=== PATIENT | male | born 2000 | race Two or more races ===

== ENCOUNTER 2019-09-11 04:43 | Emergency (ER) | payer OTHER ==
[~2019-09-11] VITALS: Ht 170.2 cm; Wt 78.6 kg
[2019-09-11 05:22] LABS: Urine Bacteria MANY /hpf (None Seen); Urine Blood Negative /uL (Negative); Urine Specific Gravity 1.012 (1.001-1.035); Urine WBC <1 /hpf (0 - 3)
[2019-09-11 07:10] LABS: Basophils # (auto) 0.1 uL; Basophils % (auto) 0.6 % (0.0-2.0); Eosinophils # (auto) 0.2 uL; Eosinophils % (auto) 2.1 % (0.0-7.0); Hematocrit 44.6 % (41.0-53.0); Hemoglobin 14.8 g/dL (13.5-17.5); Lymphocytes # (auto) 2.1 uL; Lymphocytes % (auto) 22.1 % (10.0-50.0); Mean Corpuscular Hemoglobin 25.5 pg (28.0-32.0); Mean Corpuscular Hgb Conc. 33.3 g/dL (32.0-36.0); Mean Corpuscular Volume 76.7 fL (80.0-100.0); Monocytes # (auto) 0.8 uL; Monocytes % (auto) 8.7 % (0.0-12.0); Neutrophils # (auto) 6.4 uL; Neutrophils % (auto) 66.5 % (37.0-80.0); Platelet Count (auto) 298 10^3/uL (140-450); Red Blood Cells 5.81 10^6/uL (4.5-5.90); White Blood Cell 9.6 10^3/uL (4.4-10.8)
[2019-09-11 07:29] LABS: Albumin 4.2 g/dL (3.4-5.0); BUN/Creatinine Ratio 9.3; Calcium 8.5 mg/dL (8.5-10.1); Potassium 3.9 mmol/L (3.5-5.1)
[2019-09-11 07:32] VITALS: BP 118/66
[2019-09-11 07:33] LABS: Bilirubin, Total 0.3 mg/dL (0.2-1.0); Total Protein 7.9 g/dL (6.4-8.2)
== END 2019-09-11 08:41 | disposition home or self-care (01) ==
LOC: ER 04:43
DX: R10.11 Right upper quadrant pain (principal); M79.18 Myalgia, other site
CPT/HCPCS: 36415; 74176; 80053; 81001; 82150; 83690; 85025

== ENCOUNTER 2019-12-28 22:10 | Emergency (ER) | payer OTHER ==
[~2019-12-28] VITALS: Ht 167.6 cm; Wt 77.1 kg
[2019-12-28 22:20] VITALS: BP 115/62
[2019-12-29] MEDS ORDERED: ONDANSETRON ODT 4 MG TAB PO ONE (00:15)
[2019-12-29] MEDS ORDERED: SIMETHICONE 80 MG CHEWABLE TABLET PO ONE (00:15)
== END 2019-12-29 00:35 | disposition home or self-care (01) ==
LOC: ER 22:10
DX: K52.9 Noninfective gastroenteritis and colitis, unspecified (principal)
CPT/HCPCS: 99283; Q0162

== ENCOUNTER 2020-03-14 04:44 | Inpatient (IN) | payer OTHER ==
[~2020-03-14] VITALS: Ht 170.2 cm; Wt 118.0 kg
[2020-03-14] MEDS ORDERED: ONDANSETRON HCL 4 MG/2 ML VIAL IV ONE ×2 (05:30→07:00)
[2020-03-14 05:47] LABS: Basophils # (auto) 0 10 ^3/uL (0-0.2); Basophils % (auto) 0.4 % (0.0-2.0); Eosinophils # (auto) 0.4 10 ^3/uL (0-0.8); Eosinophils % (auto) 3.7 % (0.0-7.0); Hematocrit 46.8 % (41.0-53.0); Hemoglobin 15.4 g/dL (13.5-17.5); Lymphocytes # (auto) 2.8 10 ^3/uL (0.4-5.4); Lymphocytes % (auto) 26.5 % (10.0-50.0); Mean Corpuscular Hemoglobin 25.6 pg (28.0-32.0); Mean Corpuscular Volume 77.7 fL (80.0-100.0); Monocytes % (auto) 9.8 % (0.0-12.0); Neutrophils # (auto) 6.4 10 ^3/uL (1.6-8.6); Neutrophils % (auto) 59.6 % (37.0-80.0); Platelet Count (auto) 306 10^3/uL (140-450); Red Blood Cells 6.03 10^6/uL (4.5-5.90); Red Cell Distribution Width 14.4 % (11.8-14.3); White Blood Cell 10.7 10^3/uL (4.4-10.8)
[2020-03-14 05:51] LABS: Urine Bacteria NONE SEEN /hpf (None Seen); Urine Blood Negative /uL (Negative); Urine Specific Gravity 1.011 (1.001-1.035); Urine WBC <1 /hpf (0 - 3)
[2020-03-14 06:07] LABS: Albumin 4.5 g/dL (3.4-5.0); Calcium 8.8 mg/dL (8.5-10.1); INR 1.03 (0.9-1.15); Magnesium 2.2 mg/dL (1.6-2.6); Partial Thromboplastin Time 23.2 sec (23.64-32.05); Potassium 3.2 mmol/L (3.5-5.1)
[2020-03-14 06:15] LABS: BUN/Creatinine Ratio 9.2; Bilirubin, Total 0.8 mg/dL (0.2-1.0); Total Protein 8.2 g/dL (6.4-8.2)
[2020-03-14] MEDS ORDERED: PIPERACILLIN-TAZOB 3.375GM 100 ML IV ONE (07:00)
[2020-03-14] MEDS ORDERED: MORPHINE SULFATE 4 MG/ML SYR/VIAL IV ONE (07:00)
[2020-03-14 07:45] LABS: Lactic Acid w/Reflex 2.2 mmol/L (0.4-2.0)
[2020-03-14] MEDS ORDERED: ONDANSETRON HCL 4 MG/2 ML VIAL IV PRN ×2 (09:15→18:45)
[2020-03-14] MEDS ORDERED: MORPHINE SULF INJ 2 MG/ML SYRINGE 1ML IV PRN (09:15)
[2020-03-14] MEDS ORDERED: SOD CHL 0.9%/ KCL 20MEQ 1,000 ML IV SCH (09:15)
[2020-03-14] MEDS ORDERED: NITROGLYCERIN 0.4 MG SL TAB SL PRN (09:15)
[2020-03-14] MEDS: HYDROmorphone HCL 2 MG/ML VL IV PRN ×3 (10:40→22:34)
[2020-03-14] MEDS: PANTOPRAZOLE 40 MG/10 ML VIAL INJ IV SCH (10:40)
[2020-03-14] MEDS: LACTATED RINGER'S 1,000 ML IV SCH ×2 (12:00→20:27)
[2020-03-14] MEDS: levoFLOXacin 500MG 100 ML IV SCH (16:00)
[2020-03-14] MEDS: metroNIDAZOLE 500MG/100ML 100 ML IV SCH ×2 (16:00→22:33)
[2020-03-14 17:12] VITALS: BP 139/78
[2020-03-14 21:41] VITALS: BP 136/67
[2020-03-15] MEDS: LACTATED RINGER'S 1,000 ML IV SCH ×3 (04:15→18:42)
[2020-03-15] MEDS: HYDROmorphone HCL 2 MG/ML VL IV PRN ×5 (04:16→23:01)
[2020-03-15 04:36] VITALS: BP 151/76
[2020-03-15] MEDS: metroNIDAZOLE 500MG/100ML 100 ML IV SCH ×3 (05:36→21:30)
[2020-03-15 06:06] LABS: Basophils # (auto) 0.1 10 ^3/uL (0-0.2); Eosinophils # (auto) 0 10 ^3/uL (0-0.8); Eosinophils % (auto) 0.2 % (0.0-7.0); Mean Corpuscular Hgb Conc. 32.8 g/dL (32.0-36.0); Monocytes # (auto) 1.4 10 ^3/uL (0-1.3); Red Cell Distribution Width 14.3 % (11.8-14.3)
[2020-03-15 06:08] LABS: Basophils % (auto) 0.4 % (0.0-2.0); Hemoglobin 15.7 g/dL (13.5-17.5); Lymphocytes # (auto) 1.3 10 ^3/uL (0.4-5.4); Lymphocytes % (auto) 8.5 % (10.0-50.0); Mean Corpuscular Hemoglobin 25.4 pg (28.0-32.0); Mean Corpuscular Volume 77.7 fL (80.0-100.0); Neutrophils # (auto) 13.1 10 ^3/uL (1.6-8.6); Neutrophils % (auto) 81.9 % (37.0-80.0); Nucleated Red Blood Cells % 0.1 %; Platelet Count (auto) 259 10^3/uL (140-450); Red Blood Cells 6.18 10^6/uL (4.5-5.90); White Blood Cell 15.9 10^3/uL (4.4-10.8)
[2020-03-15 06:26] LABS: Potassium 4.3 mmol/L (3.5-5.1)
[2020-03-15 06:39] LABS: BUN/Creatinine Ratio 8.7; Bilirubin, Total 0.9 mg/dL (0.2-1.0); Calcium 8.5 mg/dL (8.5-10.1); Total Protein 7.4 g/dL (6.4-8.2)
[2020-03-15 09:00] VITALS: BP 136/69
[2020-03-15] MEDS: PANTOPRAZOLE 40 MG/10 ML VIAL INJ IV SCH (09:19)
[2020-03-15] MEDS: levoFLOXacin 500MG 100 ML IV SCH (09:20)
[2020-03-15 12:40] VITALS: BP 139/84
[2020-03-15] MEDS ORDERED: PHEN1LIQ39 PO (13:37)
[2020-03-15] MEDS ORDERED: ACET-1304 PO (13:37)
[2020-03-15 16:55] VITALS: BP_SYST 138; BP_SYST 147; BP_DIAS 74; BP_DIAS 91
[2020-03-15] MEDS: ACETAMINOPHEN 325 MG TAB PO PRN (18:18)
[2020-03-15 21:41] VITALS: BP 138/81
[2020-03-16] MEDS: LACTATED RINGER'S 1,000 ML IV SCH ×4 (04:06→21:57)
[2020-03-16] MEDS: HYDROmorphone HCL 2 MG/ML VL IV PRN ×5 (04:07→21:59)
[2020-03-16 04:43] VITALS: BP 141/67
[2020-03-16] MEDS: metroNIDAZOLE 500MG/100ML 100 ML IV SCH (05:37)
[2020-03-16 05:43] LABS: Eosinophils # (auto) 0 10 ^3/uL (0-0.8)
[2020-03-16 05:46] LABS: Basophils # (auto) 0 10 ^3/uL (0-0.2); Basophils % (auto) 0.1 % (0.0-2.0); Eosinophils % (auto) 0.1 % (0.0-7.0); Hematocrit 42.6 % (41.0-53.0); Lymphocytes # (auto) 1.3 10 ^3/uL (0.4-5.4); Lymphocytes % (auto) 7.5 % (10.0-50.0); Mean Corpuscular Hemoglobin 25.4 pg (28.0-32.0); Mean Corpuscular Hgb Conc. 32.8 g/dL (32.0-36.0); Mean Corpuscular Volume 77.3 fL (80.0-100.0); Monocytes # (auto) 1.6 10 ^3/uL (0-1.3); Neutrophils # (auto) 14.8 10 ^3/uL (1.6-8.6); Neutrophils % (auto) 83.3 % (37.0-80.0); Platelet Count (auto) 227 10^3/uL (140-450); Red Blood Cells 5.51 10^6/uL (4.5-5.90); Red Cell Distribution Width 14.1 % (11.8-14.3); White Blood Cell 17.8 10^3/uL (4.4-10.8)
[2020-03-16 06:12] LABS: Potassium 3.7 mmol/L (3.5-5.1)
[2020-03-16 06:19] LABS: Albumin 3.2 g/dL (3.4-5.0); BUN/Creatinine Ratio 11.3; Bilirubin, Total 0.8 mg/dL (0.2-1.0); Calcium 7.9 mg/dL (8.5-10.1); Total Protein 6.5 g/dL (6.4-8.2)
[2020-03-16] MEDS: PANTOPRAZOLE 40 MG/10 ML VIAL INJ IV SCH (08:28)
[2020-03-16] MEDS: levoFLOXacin 500MG 100 ML IV SCH (08:28)
[2020-03-16] MEDS: ACETAMINOPHEN 325 MG TAB PO PRN ×2 (08:29→21:49)
[2020-03-16 08:50] VITALS: BP 120/82
[2020-03-16] MEDS ORDERED: ENOXAPARIN SOD 40 MG/0.4 ML SYRINGE SC ONE (10:30)
[2020-03-16] MEDS ORDERED: MEROPENEM 1GM IVPB 100 ML IV ONE (10:30)
[2020-03-16] MEDS ORDERED: OMNIPAQUE ORAL SOLN 500ml 12mg/ml PO ONE (10:44)
[2020-03-16] MEDS: MEROPENEM 1GM IVPB 100 ML IV SCH ×3 (12:53→21:52)
[2020-03-16] MEDS ORDERED: IOHEXOL 300 MG/ML 100ML BOTTLE IJ ONE (12:54)
[2020-03-16 13:00] VITALS: BP 127/75
[2020-03-16] MEDS: LINEZOLID 600MG/300ML 300 ML IV SCH ×2 (13:37→21:49)
[2020-03-16 16:06] LABS: Urine Bacteria NONE SEEN /hpf (None Seen); Urine Blood Negative /uL (Negative); Urine WBC 1 /hpf (0 - 3)
[2020-03-16 17:00] VITALS: BP 119/90
[2020-03-16 22:00] VITALS: BP 130/70
[2020-03-17] MEDS: HYDROmorphone HCL 2 MG/ML VL IV PRN ×4 (04:27→20:51)
[2020-03-17] MEDS: LACTATED RINGER'S 1,000 ML IV SCH ×3 (04:28→20:51)
[2020-03-17 05:00] VITALS: BP 128/76
[2020-03-17] MEDS: MEROPENEM 1GM IVPB 100 ML IV SCH ×3 (06:05→22:22)
[2020-03-17 07:51] LABS: Basophils # (auto) 0.1 10 ^3/uL (0-0.2); Eosinophils # (auto) 0.1 10 ^3/uL (0-0.8); Mean Corpuscular Hemoglobin 25.6 pg (28.0-32.0); Monocytes # (auto) 1.3 10 ^3/uL (0-1.3); Nucleated Red Blood Cells % 0.1 %
[2020-03-17 07:54] LABS: Basophils % (auto) 0.3 % (0.0-2.0); Eosinophils % (auto) 0.6 % (0.0-7.0); Hematocrit 39.8 % (41.0-53.0); Hemoglobin 13.2 g/dL (13.5-17.5); Lymphocytes # (auto) 1.6 10 ^3/uL (0.4-5.4); Lymphocytes % (auto) 10.9 % (10.0-50.0); Mean Corpuscular Hgb Conc. 33.2 g/dL (32.0-36.0); Mean Corpuscular Volume 77.1 fL (80.0-100.0); Monocytes % (auto) 8.8 % (0.0-12.0); Neutrophils # (auto) 11.4 10 ^3/uL (1.6-8.6); Neutrophils % (auto) 79.4 % (37.0-80.0); Platelet Count (auto) 203 10^3/uL (140-450); Red Blood Cells 5.17 10^6/uL (4.5-5.90); Red Cell Distribution Width 13.6 % (11.8-14.3); White Blood Cell 14.4 10^3/uL (4.4-10.8)
[2020-03-17 08:04] LABS: Albumin 2.9 g/dL (3.4-5.0); Calcium 7.8 mg/dL (8.5-10.1); Potassium 3.5 mmol/L (3.5-5.1)
[2020-03-17 08:08] LABS: BUN/Creatinine Ratio 8.2; Bilirubin, Total 0.5 mg/dL (0.2-1.0); Total Protein 6.5 g/dL (6.4-8.2)
[2020-03-17] MEDS: LINEZOLID 600MG/300ML 300 ML IV SCH (09:01)
[2020-03-17 09:03] VITALS: BP 136/68
[2020-03-17] MEDS ORDERED: ENOXAPARIN SOD 40 MG/0.4 ML SYRINGE SC SCH (10:00)
[2020-03-17] MEDS: PANTOPRAZOLE 40 MG/10 ML VIAL INJ IV SCH (10:07)
[2020-03-17 12:59] VITALS: BP 126/68
[2020-03-17 16:51] VITALS: BP 126/68
[2020-03-17 22:00] VITALS: BP 140/76
[2020-03-18] MEDS: LACTATED RINGER'S 1,000 ML IV SCH ×3 (01:15→13:57)
[2020-03-18] MEDS: HYDROmorphone HCL 2 MG/ML VL IV PRN ×4 (01:34→21:17)
[2020-03-18 05:01] VITALS: BP 122/67
[2020-03-18] MEDS: MEROPENEM 1GM IVPB 100 ML IV SCH ×3 (05:47→21:17)
[2020-03-18 06:59] LABS: Basophils # (auto) 0 10 ^3/uL (0-0.2); Basophils % (auto) 0.3 % (0.0-2.0); Eosinophils # (auto) 0.1 10 ^3/uL (0-0.8); Eosinophils % (auto) 1.2 % (0.0-7.0); Hemoglobin 12.8 g/dL (13.5-17.5); Neutrophils # (auto) 9.5 10 ^3/uL (1.6-8.6); Red Cell Distribution Width 13.9 % (11.8-14.3); White Blood Cell 12.5 10^3/uL (4.4-10.8)
[2020-03-18 07:01] LABS: Hematocrit 38.9 % (41.0-53.0); Lymphocytes # (auto) 1.6 10 ^3/uL (0.4-5.4); Lymphocytes % (auto) 12.9 % (10.0-50.0); Mean Corpuscular Hemoglobin 25.2 pg (28.0-32.0); Mean Corpuscular Hgb Conc. 32.9 g/dL (32.0-36.0); Mean Corpuscular Volume 76.6 fL (80.0-100.0); Monocytes # (auto) 1.2 10 ^3/uL (0-1.3); Monocytes % (auto) 9.4 % (0.0-12.0); Neutrophils % (auto) 76.2 % (37.0-80.0); Nucleated Red Blood Cells % 0.1 %; Platelet Count (auto) 245 10^3/uL (140-450); Red Blood Cells 5.08 10^6/uL (4.5-5.90)
[2020-03-18 07:31] LABS: BUN/Creatinine Ratio 14.3; Calcium 7.9 mg/dL (8.5-10.1); Potassium 3.8 mmol/L (3.5-5.1)
[2020-03-18 08:23] VITALS: BP 126/68
[2020-03-18] MEDS: PANTOPRAZOLE 40 MG/10 ML VIAL INJ IV SCH (09:14)
[2020-03-18 12:57] VITALS: BP 133/74
[2020-03-18 17:17] VITALS: BP 133/78
[2020-03-18 22:00] VITALS: BP 125/71
[2020-03-19] MEDS: LACTATED RINGER'S 1,000 ML IV SCH ×2 (00:01→09:22)
[2020-03-19] MEDS: HYDROmorphone HCL 2 MG/ML VL IV PRN ×5 (02:07→23:50)
[2020-03-19 05:00] VITALS: BP 133/66
[2020-03-19] MEDS: MEROPENEM 1GM IVPB 100 ML IV SCH ×3 (05:32→21:43)
[2020-03-19 05:47] LABS: Eosinophils # (auto) 0.2 10 ^3/uL (0-0.8); Hemoglobin 12.8 g/dL (13.5-17.5)
[2020-03-19 05:49] LABS: Basophils # (auto) 0.1 10 ^3/uL (0-0.2); Basophils % (auto) 0.4 % (0.0-2.0); Eosinophils % (auto) 1.3 % (0.0-7.0); Hematocrit 38.4 % (41.0-53.0); Lymphocytes # (auto) 1.6 10 ^3/uL (0.4-5.4); Lymphocytes % (auto) 12.2 % (10.0-50.0); Mean Corpuscular Hemoglobin 25.6 pg (28.0-32.0); Mean Corpuscular Hgb Conc. 33.3 g/dL (32.0-36.0); Monocytes # (auto) 1.3 10 ^3/uL (0-1.3); Monocytes % (auto) 9.8 % (0.0-12.0); Neutrophils # (auto) 10.1 10 ^3/uL (1.6-8.6); Neutrophils % (auto) 76.3 % (37.0-80.0); Platelet Count (auto) 263 10^3/uL (140-450); Red Blood Cells 4.98 10^6/uL (4.5-5.90); Red Cell Distribution Width 13.4 % (11.8-14.3); White Blood Cell 13.3 10^3/uL (4.4-10.8)
[2020-03-19 06:08] LABS: Albumin 2.9 g/dL (3.4-5.0); BUN/Creatinine Ratio 11.3; Calcium 8.3 mg/dL (8.5-10.1); Potassium 3.9 mmol/L (3.5-5.1)
[2020-03-19 06:22] LABS: Bilirubin, Total 0.4 mg/dL (0.2-1.0); Total Protein 6.9 g/dL (6.4-8.2)
[2020-03-19 09:03] VITALS: BP 117/65
[2020-03-19] MEDS: PANTOPRAZOLE 40 MG/10 ML VIAL INJ IV SCH (09:34)
[2020-03-19 12:49] VITALS: BP 121/63
[2020-03-19] MEDS ORDERED: LACTULOSE 20Gm/30ML SOLN PO SCH ×2 (13:00→18:00)
[2020-03-19 17:03] VITALS: BP 123/69
[2020-03-19] MEDS: ACETAMINOPHEN 325 MG TAB PO PRN (20:40)
[2020-03-19] MEDS: PANTOPRAZOLE 40 MG TAB PO SCH (21:43)
[2020-03-19] MEDS: DOCUSATE SOD 100 MG CAP PO SCH (21:43)
[2020-03-19 22:00] VITALS: BP 116/64
[2020-03-20] MEDS: HYDROmorphone HCL 2 MG/ML VL IV PRN ×4 (04:04→22:56)
[2020-03-20 05:00] VITALS: BP 119/68
[2020-03-20 05:52] LABS: Basophils # (auto) 0 10 ^3/uL (0-0.2); Basophils % (auto) 0.4 % (0.0-2.0); Eosinophils # (auto) 0.2 10 ^3/uL (0-0.8); Eosinophils % (auto) 2.1 % (0.0-7.0); Hematocrit 39.5 % (41.0-53.0); Lymphocytes # (auto) 1.1 10 ^3/uL (0.4-5.4); Lymphocytes % (auto) 9.2 % (10.0-50.0); Mean Corpuscular Hemoglobin 25.2 pg (28.0-32.0); Mean Corpuscular Hgb Conc. 32.9 g/dL (32.0-36.0); Mean Corpuscular Volume 76.5 fL (80.0-100.0); Monocytes # (auto) 1.2 10 ^3/uL (0-1.3); Monocytes % (auto) 10.1 % (0.0-12.0); Neutrophils % (auto) 78.2 % (37.0-80.0); Platelet Count (auto) 276 10^3/uL (140-450); Red Blood Cells 5.16 10^6/uL (4.5-5.90); Red Cell Distribution Width 13.7 % (11.8-14.3); White Blood Cell 11.5 10^3/uL (4.4-10.8)
[2020-03-20] MEDS: MEROPENEM 1GM IVPB 100 ML IV SCH ×3 (06:02→22:56)
[2020-03-20 06:10] LABS: Potassium 3.7 mmol/L (3.5-5.1)
[2020-03-20 08:58] VITALS: BP 110/71
[2020-03-20] MEDS: PANTOPRAZOLE 40 MG TAB PO SCH ×2 (11:11→23:11)
[2020-03-20] MEDS: DOCUSATE SOD 100 MG CAP PO SCH ×2 (11:12→22:00)
[2020-03-20] MEDS ORDERED: TPN PER PHARMACY 0 ML IV SCH (13:30)
[2020-03-20] MEDS: LACTATED RINGER'S 1,000 ML IV SCH ×2 (14:21→23:30)
[2020-03-20 14:49] LABS: Albumin 3.1 g/dL (3.4-5.0); Calcium 8.3 mg/dL (8.5-10.1); Magnesium 2.6 mg/dL (1.6-2.6)
[2020-03-20 14:57] LABS: BUN/Creatinine Ratio 8.5; Bilirubin, Total 0.4 mg/dL (0.2-1.0); Phosphorus 3.8 mg/dL (2.5-4.90); Pre Albumin 8.8 mg/dL (20.0-40.0); Total Protein 7.6 g/dL (6.4-8.2)
[2020-03-20 16:58] VITALS: BP 117/61
[2020-03-20] MEDS: InsuLIN REG 1unit/0.01ml Soln (100units/ml) SC SCH ×2 (17:47→23:20)
[2020-03-20] MEDS: ACCU-CHEK COMFORT CURVE STRIP VI SCH ×2 (17:47→23:21)
[2020-03-20] MEDS ORDERED: DEXTROSE (50%) 50ML SYRG IV SCH (18:00)
[2020-03-20] MEDS: AMINO ACID INFUSION IN D5W 1,000 ML IV NR (19:44)
[2020-03-20 22:00] VITALS: BP 126/66
[2020-03-21] MEDS: HYDROmorphone HCL 2 MG/ML VL IV PRN ×2 (04:22→21:45)
[2020-03-21 05:00] VITALS: BP 112/70
[2020-03-21] MEDS: InsuLIN REG 1unit/0.01ml Soln (100units/ml) SC SCH ×4 (05:39→23:41)
[2020-03-21] MEDS: MEROPENEM 1GM IVPB 100 ML IV SCH ×3 (05:39→21:45)
[2020-03-21] MEDS: ACCU-CHEK COMFORT CURVE STRIP VI SCH ×4 (05:40→23:41)
[2020-03-21 06:00] VITALS: BP 110/58
[2020-03-21 06:55] LABS: Potassium 3.6 mmol/L (3.5-5.1)
[2020-03-21 07:06] LABS: Albumin 2.9 g/dL (3.4-5.0); Bilirubin, Total 0.5 mg/dL (0.2-1.0); Calcium 8.1 mg/dL (8.5-10.1); Magnesium 2.7 mg/dL (1.6-2.6); Phosphorus 3.8 mg/dL (2.5-4.90); Total Protein 7.1 g/dL (6.4-8.2)
[2020-03-21 08:00] VITALS: BP 110/58
[2020-03-21] MEDS ORDERED: LACTATED RINGER'S 1,000 ML IV SCH (08:45)
[2020-03-21] MEDS: DOCUSATE SOD 100 MG CAP PO SCH ×2 (10:00→21:46)
[2020-03-21] MEDS: PANTOPRAZOLE 40 MG TAB PO SCH ×2 (10:46→21:46)
[2020-03-21] MEDS: LACTATED RINGER'S 1,000 ML IV SCH ×2 (10:49→20:05)
[2020-03-21] MEDS: ACETAMINOPHEN 325 MG TAB PO PRN (12:57)
[2020-03-21 13:00] VITALS: BP 121/62
[2020-03-21 17:00] VITALS: BP 111/66
[2020-03-21] MEDS ORDERED: PPN PER PHARMACY IV NR ×8 (20:00)
[2020-03-21] MEDS: AMINO ACID INFUSION IN D5W 1,000 ML IV NR (20:14)
[2020-03-21 22:00] VITALS: BP 118/63
[2020-03-22] VITALS (7 sets, daily range): BP systolic 104–120; BP diastolic 48–71
[2020-03-22] MEDS: HYDROmorphone HCL 2 MG/ML VL IV PRN (02:48)
[2020-03-22] MEDS: InsuLIN REG 1unit/0.01ml Soln (100units/ml) SC SCH ×3 (05:57→18:00)
[2020-03-22] MEDS: ACCU-CHEK COMFORT CURVE STRIP VI SCH ×3 (05:57→18:00)
[2020-03-22] MEDS: MEROPENEM 1GM IVPB 100 ML IV SCH ×3 (05:58→23:44)
[2020-03-22 06:25] LABS: Potassium 4.1 mmol/L (3.5-5.1)
[2020-03-22 06:33] LABS: BUN/Creatinine Ratio 13.5; Bilirubin, Total 0.4 mg/dL (0.2-1.0); Calcium 8.3 mg/dL (8.5-10.1); Magnesium 2.7 mg/dL (1.6-2.6); Total Protein 7.2 g/dL (6.4-8.2)
[2020-03-22 06:34] LABS: INR 1.19 (0.9-1.15)
[2020-03-22] MEDS ORDERED: SODIUM CHLORIDE LOCK 10 ML ONE (09:01)
[2020-03-22] MEDS ORDERED: FLUMAZENIL 0.1 MG/ML INJ 10ML MDV IV ONE (09:01)
[2020-03-22] MEDS ORDERED: NALOXONE HCL 0.4 MG/ML VIAL ONE (09:01)
[2020-03-22] MEDS ORDERED: LIDOCAINE VISCOUS 2% 15ML UD ONE (09:01)
[2020-03-22] MEDS ORDERED: diphenhdrAMINE HCL 50 MG/1 ML VL ONE (09:02)
[2020-03-22] MEDS: DOCUSATE SOD 100 MG CAP PO SCH ×2 (09:05→22:00)
[2020-03-22] MEDS: PANTOPRAZOLE 40 MG TAB PO SCH ×3 (10:00→22:00)
[2020-03-22] MEDS: MIDAZOLAM HCL 5 MG/ML-1ML VIAL ONE ×2 (10:02→10:05)
[2020-03-22] MEDS: fentaNYL CITRATE 100 MCG/2 ML VL ONE ×2 (10:02→10:05)
[2020-03-22 10:37] LABS: % Iron Saturation 6.3 % (20-55)
[2020-03-22] MEDS: LACTATED RINGER'S 1,000 ML IV SCH (12:40)
[2020-03-22] MEDS: ACETAMINOPHEN 325 MG TAB PO PRN (17:50)
[2020-03-22] MEDS ORDERED: PPN PER PHARMACY IV NR ×10 (20:00)
[2020-03-23] MEDS: ACCU-CHEK COMFORT CURVE STRIP VI SCH ×4 (00:10→18:00)
[2020-03-23] MEDS: HYDROmorphone HCL 2 MG/ML VL IV PRN (01:48)
[2020-03-23 04:30] VITALS: BP 116/64
[2020-03-23] MEDS: LACTATED RINGER'S 1,000 ML IV SCH ×2 (05:20→22:16)
[2020-03-23 05:57] LABS: Basophils # (auto) 0.1 10 ^3/uL (0-0.2); Eosinophils # (auto) 0.3 10 ^3/uL (0-0.8); Hemoglobin 12.5 g/dL (13.5-17.5); Mean Corpuscular Hemoglobin 25.5 pg (28.0-32.0); Mean Corpuscular Hgb Conc. 33.5 g/dL (32.0-36.0); Nucleated Red Blood Cells % 0.1 %; Red Blood Cells 4.91 10^6/uL (4.5-5.90)
[2020-03-23 05:59] LABS: Basophils % (auto) 0.7 % (0.0-2.0); Eosinophils % (auto) 3.1 % (0.0-7.0); Hematocrit 37.3 % (41.0-53.0); Lymphocytes # (auto) 1.9 10 ^3/uL (0.4-5.4); Lymphocytes % (auto) 19.9 % (10.0-50.0); Monocytes # (auto) 1.1 10 ^3/uL (0-1.3); Monocytes % (auto) 12.2 % (0.0-12.0); Neutrophils % (auto) 64.1 % (37.0-80.0); Platelet Count (auto) 379 10^3/uL (140-450); Red Cell Distribution Width 13.6 % (11.8-14.3); White Blood Cell 9.4 10^3/uL (4.4-10.8)
[2020-03-23] MEDS: InsuLIN REG 1unit/0.01ml Soln (100units/ml) SC SCH ×4 (06:00→18:00)
[2020-03-23] MEDS: MEROPENEM 1GM IVPB 100 ML IV SCH ×3 (06:13→22:15)
[2020-03-23 06:24] LABS: Albumin 2.9 g/dL (3.4-5.0); BUN/Creatinine Ratio 10.5; Calcium 8.2 mg/dL (8.5-10.1); Magnesium 2.6 mg/dL (1.6-2.6); Potassium 3.7 mmol/L (3.5-5.1)
[2020-03-23 06:46] LABS: Bilirubin, Total 0.4 mg/dL (0.2-1.0); Phosphorus 3.4 mg/dL (2.5-4.90)
[2020-03-23 09:00] VITALS: BP 119/70
[2020-03-23] MEDS: DOCUSATE SOD 100 MG CAP PO SCH ×2 (10:00→22:00)
[2020-03-23] MEDS: PANTOPRAZOLE 40 MG TAB PO SCH ×2 (10:14→22:15)
[2020-03-23 13:00] VITALS: BP 119/66
[2020-03-23 16:48] VITALS: BP 113/75
[2020-03-23] MEDS ORDERED: [UNRECOGNIZED DRUG - OTHER] IV NR ×10 (20:00)
[2020-03-23] MEDS ORDERED: SODIUM ACETATE IV NR ×10 (20:00)
[2020-03-23] MEDS ORDERED: FAT EMULSION IV NR ×10 (20:00)
[2020-03-23] MEDS ORDERED: POTASSIUM CHLORIDE IV NR ×10 (20:00)
[2020-03-23 21:00] VITALS: BP_SYST 115; BP_SYST 160; BP_DIAS 64; BP_DIAS 78
[2020-03-24 04:30] VITALS: BP 114/58
[2020-03-24] MEDS: InsuLIN REG 1unit/0.01ml Soln (100units/ml) SC SCH ×2 (06:00)
[2020-03-24] MEDS: ACCU-CHEK COMFORT CURVE STRIP VI SCH ×2 (06:00)
[2020-03-24] MEDS: MEROPENEM 1GM IVPB 100 ML IV SCH (06:16)
[2020-03-24 07:01] LABS: Albumin 3.1 g/dL (3.4-5.0); Calcium 8.4 mg/dL (8.5-10.1); Magnesium 2.4 mg/dL (1.6-2.6); Potassium 3.9 mmol/L (3.5-5.1)
[2020-03-24 07:05] LABS: BUN/Creatinine Ratio 8.5; Bilirubin, Total 0.4 mg/dL (0.2-1.0); Phosphorus 4.3 mg/dL (2.5-4.90); Total Protein 7.1 g/dL (6.4-8.2)
[2020-03-24 09:00] VITALS: BP 128/53
[2020-03-24] MEDS: DOCUSATE SOD 100 MG CAP PO SCH (10:00)
[2020-03-24] MEDS: PANTOPRAZOLE 40 MG TAB PO SCH (10:29)
[2020-03-24] MEDS ORDERED: PANT40TA2 PO (12:28)
[2020-03-24 13:00] VITALS: BP 112/63
[2020-03-24 13:49] VITALS: BP 112/63
== END 2020-03-24 15:15 | disposition home or self-care (01) | DRG 720 ==
LOC: ER 04:44 → OVERFLOW 04:45 → WEST WING 10:19
PROVIDERS: ADMIT Nurse Practitioner Acute Care; ATTEND Internal Medicine Nephrology
PROC: 0DB68ZX Excision of Stomach, Via Natural or Artificial Opening Endoscopic, Diagnostic (ICD-10-PCS; principal; 2020-03-22 10:01)
DX: A41.9 Sepsis, unspecified organism (principal); J90 Pleural effusion, not elsewhere classified; K85.10 Biliary acute pancreatitis without necrosis or infection; E87.6 Hypokalemia; J98.11 Atelectasis; E87.5 Hyperkalemia; K76.0 Fatty (change of) liver, not elsewhere classified; Z79.899 Other long term (current) drug therapy; K29.70 Gastritis, unspecified, without bleeding
CPT/HCPCS: 36415; 43239; 71045; 71260; 74018; 74176; 74177; 74181; 76604; 76705; 78226; 80048; 80053; 80061; 81001; 82040; 82150; 82962; 83540; 83550; 83605; 83690; 83735; 84100; 84132; 84478; 85025; 85610; 85730; 86850; 86900; 86901; 87040; 87086; 99291; C9113; G0378; J1956; J2185; J2250; J2405; J2543; J3490; J7131

== ENCOUNTER 2020-06-02 07:46 | Inpatient (IN) | payer MEDICAID, OTHER ==
[~2020-06-02] VITALS: Ht 170.2 cm; Wt 73.0 kg
[~2020-06-02 07:46] MED LIST: ACET-1304 PO; PANT40TA2 PO
[2020-06-02] MEDS ORDERED: SODIUM CHLORIDE 0.9% 1,000 ML IV ONE ×2 (08:34)
[2020-06-02 09:11] LABS: Basophils # (auto) 0 10 ^3/uL (0-0.2); Basophils % (auto) 0.4 % (0.0-2.0); Eosinophils # (auto) 0.1 10 ^3/uL (0-0.8); Monocytes # (auto) 0.9 10 ^3/uL (0-1.3); Nucleated Red Blood Cells % 0.1 %
[2020-06-02 09:13] LABS: Eosinophils % (auto) 1.4 % (0.0-7.0); Hematocrit 45.1 % (41.0-53.0); Hemoglobin 14.7 g/dL (13.5-17.5); Lymphocytes # (auto) 1.2 10 ^3/uL (0.4-5.4); Lymphocytes % (auto) 13.7 % (10.0-50.0); Mean Corpuscular Hemoglobin 24.7 pg (28.0-32.0); Mean Corpuscular Hgb Conc. 32.6 g/dL (32.0-36.0); Mean Corpuscular Volume 75.7 fL (80.0-100.0); Monocytes % (auto) 10.5 % (0.0-12.0); Neutrophils # (auto) 6.3 10 ^3/uL (1.6-8.6); Platelet Count (auto) 268 10^3/uL (140-450); Red Blood Cells 5.96 10^6/uL (4.5-5.90); Red Cell Distribution Width 14.6 % (11.8-14.3); White Blood Cell 8.5 10^3/uL (4.4-10.8)
[2020-06-02 09:29] LABS: Albumin 4.3 g/dL (3.4-5.0); Calcium 8.8 mg/dL (8.5-10.1); Potassium 3.8 mmol/L (3.5-5.1)
[2020-06-02 09:38] LABS: Bilirubin, Total 1.9 mg/dL (0.2-1.0); Total Protein 8.1 g/dL (6.4-8.2)
[2020-06-02] MEDS ORDERED: metroNIDAZOLE 500MG/100ML 100 ML IV ONE (11:15)
[2020-06-02] MEDS ORDERED: cefTRIAXone 1GM/50ML D5W 50 ML IV ONE ×2 (11:15→16:45)
[2020-06-02] MEDS ORDERED: MORPHINE SULF INJ 2 MG/ML SYRINGE 1ML IV PRN ×3 (16:15→16:45)
[2020-06-02] MEDS ORDERED: NITROGLYCERIN 0.4 MG SL TAB SL PRN (16:15)
[2020-06-02] MEDS ORDERED: PROMETHAZINE HCL 25 MG/ML 1ML IV PRN (16:45)
[2020-06-02] MEDS ORDERED: DICL50TA2 PO (19:40)
[2020-06-02] MEDS ORDERED: KETO2CRE4 TOP (19:40)
[2020-06-02] MEDS: SODIUM CHLORIDE 0.9% 1,000 ML IV SCH ×2 (20:39→23:25)
[2020-06-02 21:00] VITALS: BP 124/52
--- NOTE | 2020-06-02 21:00 | NUR ---
Telemetry admit from ER [facility] admitted to Telemetry unit. Patient oriented to [facility] RN primary RN, MST unit, room 270, bed B, and unit policies regarding patient care and visiting hours. Patient now on continuous telemetry monitoring, tele box #66 and telemetry reading on arrival to unit is SR. Patient on room air, weighed by bed scale and encouraged to call if they need something. All questions and concerns addressed, patient verbalized understanding. Note: Patient able to ambulate independently, bed in lowest locked position, side rails up x2, and call light within reach. Will continue to monitor Q1hr PRN.
[2020-06-02 22:00] VITALS: BP 124/52
[2020-06-02] MEDS: metroNIDAZOLE 500MG/100ML 100 ML IV SCH (22:16)
[2020-06-02] MEDS: FAMOTIDINE (10MG/ML) 2ML VL IV SCH (22:17)
[2020-06-03] VITALS (7 sets, daily range): BP systolic 106–120; BP diastolic 45–68
[2020-06-03 06:38] LABS: Basophils # (auto) 0 10 ^3/uL (0-0.2); Eosinophils # (auto) 0.1 10 ^3/uL (0-0.8); Lymphocytes # (auto) 1.7 10 ^3/uL (0.4-5.4); Mean Corpuscular Hgb Conc. 32.6 g/dL (32.0-36.0)
[2020-06-03 06:41] LABS: Basophils % (auto) 0.3 % (0.0-2.0); Eosinophils % (auto) 1.5 % (0.0-7.0); Hematocrit 41.3 % (41.0-53.0); Hemoglobin 13.5 g/dL (13.5-17.5); Lymphocytes % (auto) 20.8 % (10.0-50.0); Mean Corpuscular Hemoglobin 24.8 pg (28.0-32.0); Mean Corpuscular Volume 76.2 fL (80.0-100.0); Monocytes # (auto) 0.6 10 ^3/uL (0-1.3); Monocytes % (auto) 8.1 % (0.0-12.0); Neutrophils # (auto) 5.5 10 ^3/uL (1.6-8.6); Neutrophils % (auto) 69.3 % (37.0-80.0); Nucleated Red Blood Cells % 0.2 %; Platelet Count (auto) 252 10^3/uL (140-450); Red Blood Cells 5.41 10^6/uL (4.5-5.90); Red Cell Distribution Width 14.4 % (11.8-14.3)
[2020-06-03] MEDS: metroNIDAZOLE 500MG/100ML 100 ML IV SCH ×3 (06:53→21:39)
[2020-06-03 06:54] LABS: Albumin 3.4 g/dL (3.4-5.0); BUN/Creatinine Ratio 14.7; Calcium 8.3 mg/dL (8.5-10.1); Potassium 3.7 mmol/L (3.5-5.1)
[2020-06-03] MEDS: SODIUM CHLORIDE 0.9% 1,000 ML IV SCH ×3 (06:54→22:15)
[2020-06-03 07:04] LABS: Total Protein 6.9 g/dL (6.4-8.2)
--- NOTE | 2020-06-03 07:30 | NUR ---
Opening Shift Note Assumed care of patient, awake and alert. No S/S of distress/SOB or pain. Instructed on POC and to call or assist PRN, will continue to monitor for changes Q1hr and PRN.
[2020-06-03] MEDS: cefTRIAXone 1GM/50ML D5W 50 ML IV SCH (09:41)
[2020-06-03] MEDS: FAMOTIDINE (10MG/ML) 2ML VL IV SCH ×2 (09:41→21:39)
--- NOTE | 2020-06-03 19:30 | NUR ---
Opening Shift Note Assumed care of patient, awake and alert. No S/S of distress/SOB or pain. Instructed on POC and to call for assist PRN, will continue to monitor for changes Q1hr and PRN.
[2020-06-04 05:00] VITALS: BP 107/57
[2020-06-04] MEDS: metroNIDAZOLE 500MG/100ML 100 ML IV SCH ×3 (05:13→21:29)
[2020-06-04 06:36] LABS: Albumin 3.4 g/dL (3.4-5.0); BUN/Creatinine Ratio 11.8; Calcium 8.2 mg/dL (8.5-10.1); Magnesium 2.1 mg/dL (1.6-2.6); Potassium 3.7 mmol/L (3.5-5.1)
[2020-06-04 06:39] LABS: Bilirubin, Total 0.8 mg/dL (0.2-1.0); Total Protein 6.8 g/dL (6.4-8.2)
[2020-06-04 08:00] VITALS: BP 125/61
[2020-06-04 09:00] VITALS: BP 125/61
[2020-06-04] MEDS: cefTRIAXone 1GM/50ML D5W 50 ML IV SCH (09:09)
[2020-06-04] MEDS: SODIUM CHLORIDE 0.9% 1,000 ML IV SCH ×2 (09:09→11:30)
[2020-06-04] MEDS: FAMOTIDINE (10MG/ML) 2ML VL IV SCH ×2 (09:10→21:29)
--- NOTE | 2020-06-04 12:01 | NUR ---
Nutrition Assessment Notes: Please see attached link for complete assessment Est Energy needs BW 73 [id number] kcals (25-30 kcal/kgBW), Est Protein needs: 73-87 gms/day (1.0-1.2 gm/kgBW). Will continue to monitor and reassess prn. Addendum: 06/04/20 at [address] Amended: Links added.
[2020-06-04 13:00] VITALS: BP 117/59
[2020-06-04 17:00] VITALS: BP 115/60
--- NOTE | 2020-06-04 17:18 | NUR ---
SPOKE WITH DR. BECERRA. HE WILL FOLLOW UP WITH THE PATIENT TOMORROW.
[2020-06-04 22:00] VITALS: BP 115/60
[2020-06-05 05:00] VITALS: BP 120/43
[2020-06-05] MEDS: metroNIDAZOLE 500MG/100ML 100 ML IV SCH ×3 (05:26→22:10)
[2020-06-05] MEDS: SODIUM CHLORIDE 0.9% 1,000 ML IV SCH ×2 (05:26→16:06)
[2020-06-05 05:53] LABS: Albumin 3.6 g/dL (3.4-5.0); Potassium 3.8 mmol/L (3.5-5.1)
[2020-06-05 05:58] LABS: Bilirubin, Direct 0.2 mg/dL (0-0.2); Bilirubin, Total 0.6 mg/dL (0.2-1.0); Total Protein 7.1 g/dL (6.4-8.2)
--- NOTE | 2020-06-05 07:15 | NUR ---
Opening Shift Note: Assumed care of patient, awake and alert. No S/S of distress/SOB or pain. Bed in lowest locked position, side rails up x 2, call light within reach. Patient instructed on POC and to call for assist PRN, will continue to monitor for changes Q1hr and PRN.
[2020-06-05 09:00] VITALS: BP 117/59
[2020-06-05] MEDS: cefTRIAXone 1GM/50ML D5W 50 ML IV SCH (09:03)
[2020-06-05] MEDS: FAMOTIDINE (10MG/ML) 2ML VL IV SCH ×2 (09:03→22:10)
[2020-06-05 13:00] VITALS: BP 109/53
[2020-06-05 17:00] VITALS: BP 115/79
[2020-06-05 22:22] VITALS: BP 117/68
--- NOTE | 2020-06-05 22:49 | NUR ---
Left hand IV infiltrated. Patient refused new IV start at this time. Patient educated on need for IV at this time. Still refused
--- NOTE | 2020-06-06 00:14 | NUR ---
Patient continually refused new IV placement. States "leave this one in, it's fine. I know my body." This nurse educated patient on need for IV. Patient continually refused.
--- NOTE | 2020-06-06 02:52 | NUR ---
CLOSING NOTE: Patient asleep in bed. No S/S of distress at this time. Care endorsed.
--- NOTE | 2020-06-06 03:15 | NUR ---
Opening Shift Note Assumed care of patient, pt laying down in bed quietly with eyes closed. pt is on RA with even and unlabored respirations, equal chest rise and fall present. No S/S of distress/SOB or pain at this time. Bed is in lowest locked position, sire rails up x2, and call light is within reach. Will continue to monitor for changes Q1hr and PRN.
[2020-06-06 05:00] VITALS: BP 109/66
[2020-06-06] MEDS: metroNIDAZOLE 500MG/100ML 100 ML IV SCH (05:24)
[2020-06-06] MEDS: SODIUM CHLORIDE 0.9% 1,000 ML IV SCH (05:24)
--- NOTE | 2020-06-06 05:25 | NUR ---
PT REFUSING NEW IV LINE PT REFUSING NEW IV START AT THIS TIME. PT STATING IV FEELS FINE, HE CAN FEEL IT WORKING SO HE DOESN'T WANT THE CURRENT ONE REMOVED, AND THAT HE IS A HARD STICK. PT EDUCATED THAT LINE IS INFILTRATED AND THAT WE CAN NO LONGER USE CURRENT LINE. PT VERBALIZED UNDERSTANDING, BUT STILL REFUSING REMOVAL OF OLD LINE AT THIS TIME AND REFUSING START OF A NEW LINE. WILL CONTINUE TO MONITOR Q1H AND PRN.
[2020-06-06 06:13] LABS: Potassium 3.6 mmol/L (3.5-5.1)
[2020-06-06 06:19] LABS: Albumin 3.6 g/dL (3.4-5.0); Bilirubin, Direct 0.3 mg/dL (0-0.2); Bilirubin, Total 0.5 mg/dL (0.2-1.0); Total Protein 6.8 g/dL (6.4-8.2)
--- NOTE | 2020-06-06 07:24 | NUR ---
Closing Note Patient resting quietly in bed. No S/S of distress/SOB or pain. Care endorsed to Fern WOOD.
[2020-06-06 09:00] VITALS: BP 128/75
[2020-06-06] MEDS: cefTRIAXone 1GM/50ML D5W 50 ML IV SCH (09:00)
[2020-06-06] MEDS: FAMOTIDINE (10MG/ML) 2ML VL IV SCH (09:28)
--- NOTE | 2020-06-06 09:28 | NUR ---
Upon flushing IV, line is infiltrated, patient states it is not, does not want a new IV, I discussed with patient the risks of not getting his ABX, patient states "no, im not going to have a new one, i'm going to go home". Physician to be notified.
[2020-06-06] MEDS ORDERED: LEVO500T21 PO (11:49)
[2020-06-06] MEDS ORDERED: METR500T PO (11:49)
[2020-06-06 13:00] VITALS: BP 109/58
--- NOTE | 2020-06-06 14:33 | NUR ---
patient unable to be scheduled for DC clinic, the clinic does not take his insurance.
--- NOTE | 2020-06-06 14:57 | NUR ---
Patient given Discharge instructions, he verbalized instructions. IV dc'd with catheter intact, tele box removed and sent back to monitor techs.
--- NOTE | 2020-06-06 15:35 | NUR ---
patient had medications delivered by [facility] pharmacy to bedside, patient taken down stairs to families vehicle.
== END 2020-06-06 15:36 | disposition home or self-care (01) ==
LOC: ER 07:46 → TELE 07:47 → TELE-WESTW 21:00
PROVIDERS: ADMIT Internal Medicine; ATTEND Internal Medicine
DX: K80.20 Calculus of gallbladder without cholecystitis without obstruction (principal); K85.10 Biliary acute pancreatitis without necrosis or infection; E86.0 Dehydration; R79.89 Other specified abnormal findings of blood chemistry
CPT/HCPCS: 36415; 71046; 74181; 76705; 80053; 80076; 82150; 83605; 83690; 83735; 84132; 85025; 87040; 96361; 96365; 96368; 99291; G0378; J0696; J3490

== ENCOUNTER 2020-06-19 13:02 | Inpatient (IN) | payer MEDICAID, OTHER ==
[~2020-06-19] VITALS: Ht 170.2 cm; Wt 66.1 kg
[~2020-06-19 13:02] MED LIST changes: -ACET-1304 PO; +DICL50TA2 PO; +KETO2CRE4 TOP; +LEVO500T21 PO; +METR500T PO
[2020-06-19] MEDS ORDERED: PANTOPRAZOLE 40 MG/10 ML VIAL INJ IV STA (14:08)
[2020-06-19] MEDS ORDERED: SODIUM CHLORIDE 0.9% 1,000 ML IVB ONE (14:08)
[2020-06-19] MEDS ORDERED: ONDANSETRON HCL 4 MG/2 ML VIAL IV ONE (14:15)
[2020-06-19] MEDS ORDERED: MORPHINE SULFATE 4 MG/ML SYR/VIAL IV ONE (14:15)
[2020-06-19 15:43] LABS: Basophils # (auto) 0 10 ^3/uL (0-0.2); Eosinophils # (auto) 0.2 10 ^3/uL (0-0.8); Hemoglobin 15.5 g/dL (13.5-17.5); Monocytes # (auto) 0.5 10 ^3/uL (0-1.3); Neutrophils # (auto) 2.9 10 ^3/uL (1.6-8.6); White Blood Cell 5.4 10^3/uL (4.4-10.8)
[2020-06-19 15:45] LABS: Basophils % (auto) 0.9 % (0.0-2.0); Eosinophils % (auto) 3.8 % (0.0-7.0); Hematocrit 47.5 % (41.0-53.0); Lymphocytes # (auto) 1.7 10 ^3/uL (0.4-5.4); Lymphocytes % (auto) 31.8 % (10.0-50.0); Mean Corpuscular Hgb Conc. 32.7 g/dL (32.0-36.0); Mean Corpuscular Volume 76.4 fL (80.0-100.0); Monocytes % (auto) 9.2 % (0.0-12.0); Neutrophils % (auto) 54.3 % (37.0-80.0); Nucleated Red Blood Cells % 0.3 %; Platelet Count (auto) 276 10^3/uL (140-450); Red Blood Cells 6.21 10^6/uL (4.5-5.90); Red Cell Distribution Width 14.7 % (11.8-14.3)
[2020-06-19 15:54] LABS: Albumin 4.8 g/dL (3.4-5.0); Calcium 9.2 mg/dL (8.5-10.1); Potassium 4.1 mmol/L (3.5-5.1)
[2020-06-19 15:57] LABS: BUN/Creatinine Ratio 10.8; Bilirubin, Total 0.6 mg/dL (0.2-1.0); Total Protein 8.9 g/dL (6.4-8.2)
[2020-06-19 15:59] LABS: INR 1.07 (0.9-1.15); Partial Thromboplastin Time 28.9 sec (23.64-32.05)
[2020-06-19] MEDS ORDERED: ACETAMINOPHEN 325 MG TAB PO PRN (16:45)
[2020-06-19] MEDS ORDERED: ONDANSETRON HCL 4 MG/2 ML VIAL IV PRN (16:45)
[2020-06-20] VITALS (7 sets, daily range): BP systolic 103–143; BP diastolic 52–91
[2020-06-20] MEDS: SODIUM CHLORIDE 0.9% 1,000 ML IV SCH ×3 (02:12→21:35)
--- NOTE | 2020-06-20 02:20 | NUR ---
MS admit from ER [facility] admitted to tele/MS after NO SBAR WAS received. Patient oriented to BENIGNO weber RN, unit, room, bed, and unit policies regarding patient care and visiting hours. Patient weighed by bedscale and encouraged to call if they need something. All questions and concerns addressed, patient verbalized understanding.
--- NOTE | 2020-06-20 03:00 | NUR ---
[facility] SWAB SENT
[2020-06-20] MEDS: PANTOPRAZOLE 40 MG/10 ML VIAL INJ IV SCH (09:06)
[2020-06-20 16:15] LABS: Urine Bacteria FEW /hpf (None Seen); Urine Blood Negative /uL (Negative); Urine Specific Gravity 1.009 (1.001-1.035); Urine WBC <1 /hpf (0 - 3)
--- NOTE | 2020-06-20 19:30 | NUR ---
Received pt. in bed resting alert, awake, oriented x 4, in Room Air, breathing regular and unlabored. Pt. is on NPO for removal of the gallbladder called Cholecystectomy. Pt. will be @ the OR procedure tomorrow 06/21/2020. Pt. with all consent signed and all Surgical and Anaesthesia paper consent form signed @ the chart. Pt. is aware of the OR. Cholecystectomy procedure and is compliant with being NPO. Pt. denies chest pain. The abdominal pain is only 2-3/10 scale @ this time and this kind of abdominal pain is tolerable. Pt. is pleasant and cooperative. Initial assessment completed.
--- NOTE | 2020-06-20 20:00 | NUR ---
Complete assessment done. Keep pt. informed of present nsg. care. Pt. resting and conversing with the roommate.
--- NOTE | 2020-06-20 20:30 | NUR ---
IVF of NS @ 75 ml/hr. continuous.
--- NOTE | 2020-06-21 00:30 | NUR ---
Pt. is resting and sleeping. Kept NPO. Pt. did not asked for pain reliever as his pain is mild and tolerable about 2/10 scale. Keep room quiet and free from unnecessary noise.
--- NOTE | 2020-06-21 02:00 | NUR ---
IVF of NS continuous @ 75 ml./hr.
--- NOTE | 2020-06-21 04:30 | NUR ---
Pre-op checklist for Cholecystectomy O.R. Surgery started @ 0430 Am.
[2020-06-21 05:48] LABS: Basophils # (auto) 0 10 ^3/uL (0-0.2); Basophils % (auto) 0.5 % (0.0-2.0); Eosinophils # (auto) 0.2 10 ^3/uL (0-0.8); Hematocrit 44.4 % (41.0-53.0); Hemoglobin 14.7 g/dL (13.5-17.5); Lymphocytes # (auto) 2.4 10 ^3/uL (0.4-5.4); Lymphocytes % (auto) 42.1 % (10.0-50.0); Mean Corpuscular Hemoglobin 25.1 pg (28.0-32.0); Mean Corpuscular Hgb Conc. 33.2 g/dL (32.0-36.0); Mean Corpuscular Volume 75.6 fL (80.0-100.0); Monocytes # (auto) 0.6 10 ^3/uL (0-1.3); Monocytes % (auto) 10.3 % (0.0-12.0); Neutrophils # (auto) 2.4 10 ^3/uL (1.6-8.6); Neutrophils % (auto) 43.1 % (37.0-80.0); Nucleated Red Blood Cells % 0.1 %; Platelet Count (auto) 243 10^3/uL (140-450); Red Blood Cells 5.87 10^6/uL (4.5-5.90); Red Cell Distribution Width 14.4 % (11.8-14.3); White Blood Cell 5.6 10^3/uL (4.4-10.8)
[2020-06-21 05:57] VITALS: BP 119/77
[2020-06-21 06:06] LABS: BUN/Creatinine Ratio 8.9; Calcium 8.9 mg/dL (8.5-10.1); Potassium 3.6 mmol/L (3.5-5.1)
[2020-06-21 07:00] VITALS: BP 105/57
[2020-06-21] MEDS ORDERED: ceFAZolin 1GM/50ML 50 ML IV ONE (07:18)
[2020-06-21] MEDS ORDERED: LIDOCAINE 1% (LOCAL ANESTH.) PF 5ml SDV ONE (07:25)
[2020-06-21] MEDS ORDERED: SUCCINYLCHOLINE CHLORIDE 20 MG/ML 10ML VIAL IV ONE (07:26)
[2020-06-21] MEDS ORDERED: MIDAZOLAM HCL 1MG/1ML-2 ML VIAL ONE (07:30)
--- NOTE | 2020-06-21 07:30 | NUR ---
Pt. wheeled to the Pre-op room of the O.R. with the help of 2 hospital OR Personnel. Pt. chart endorsed it to the 2 o.R. Personnel.
[2020-06-21] MEDS ORDERED: ROCURONIUM 10MG/ML 10ML VIAL IV ONE (07:33)
[2020-06-21] MEDS ORDERED: PROPOFOL 10 MG/ML 20 ML IV ONE (07:33)
[2020-06-21] MEDS ORDERED: fentaNYL CITRATE 100 MCG/2 ML VL ONE (07:51)
[2020-06-21 08:00] VITALS: BP 105/57
[2020-06-21] MEDS ORDERED: METOCLOPRAMIDE HCL 5MG/ml INJ 2ml VIAL IV PRN (08:00)
[2020-06-21] MEDS ORDERED: HYDROmorphone HCL 2 MG/ML VL IV PRN (08:00)
[2020-06-21] MEDS ORDERED: ONDANSETRON HCL 4 MG/2 ML VIAL IV PRN (08:00)
[2020-06-21] MEDS ORDERED: NALOXONE HCL 0.4 MG/ML VIAL IV PRN (08:00)
[2020-06-21] MEDS ORDERED: MEPERIDINE HCL (25 MG/ML) 1ML VIAL ONE (08:14)
[2020-06-21] MEDS ORDERED: ESMOLOL HCL 10 ML IV ONE (08:16)
[2020-06-21] MEDS ORDERED: GLYCOPYRROLATE 0.2 MG/ML 1ML VIAL ONE (08:28)
[2020-06-21] MEDS ORDERED: NEOSTIGMINE 1 MG/ML INJ (10mg/10ML VIAL) ONE (08:28)
[2020-06-21] MEDS: SODIUM CHLORIDE 0.9% 1,000 ML IV SCH ×2 (08:45→21:27)
[2020-06-21] MEDS: HYDROmorphone HCL 2 MG/ML VL IV PRN ×2 (09:09→09:21)
[2020-06-21] MEDS: PANTOPRAZOLE 40 MG/10 ML VIAL INJ IV SCH (09:25)
[2020-06-21] MEDS: MORPHINE SULF INJ 2 MG/ML SYRINGE 1ML IV PRN ×2 (09:50→22:38)
[2020-06-21 12:00] VITALS: BP 121/56
[2020-06-21] MEDS: HYDROcodone-ACET 5/325MG TAB PO PRN (13:54)
[2020-06-21 16:53] VITALS: BP 119/78
--- NOTE | 2020-06-21 20:00 | NUR ---
Assessment done and completed.
--- NOTE | 2020-06-21 20:30 | NUR ---
Pt. verbalizing unable to pass urine and is in urgency to void but unable to do so. Lower abdomen and Suprapubic area is distended and hard or firm to touch. Bladder scanned lower abdomen and suprapubic area and residual urine is = 605 mls. Pt. verbalized desiring to have the F/C inserted for him to help him at ease and relieved from this urine inside his bladder. Pt. reassured that will call Hospitalist to get order for Rodriguez Cath.
--- NOTE | 2020-06-21 20:50 | NUR ---
Called [facility] JEANA Reaves and awaiting return call.
--- NOTE | 2020-06-21 21:20 | NUR ---
JEANA Reaves, [facility] returned call. Notified JEANA Reaves that pt.' bladder is distended and has urine residual of 605 mls. after scanning the pt.'s suprapubic area and lower abdomen. JEANA Reaves made aware and gave order to insert F/C. Will placed this order in the [facility] and will carry out.
--- NOTE | 2020-06-21 21:54 | NUR ---
F/C insertion order was placed in the system and provided pt. explanation that he will be started F/C tonight.
[2020-06-21 22:00] VITALS: BP 126/73
--- NOTE | 2020-06-21 22:00 | NUR ---
Prepared F/C set up tray and inserted F/C to the pt. using strict sterile technique. Secured tube @ the pt.s right leg properly and keep pt. safe, warm and comfortable in bed. Pt. laying supine with F/C placed/hooked under the bed by gravity.
--- NOTE | 2020-06-21 22:10 | NUR ---
F/C has only small yellow output of urine. Pt. verbalized that he was able to void twice @ the bathroom and verbalized he voided alot i nthe bathroom. Scanned the lower abdomen/suprapubic area with residual urine = 117 mls. Pt. aware of the bladder scanned result.
[2020-06-22] MEDS: HYDROcodone-ACET 5/325MG TAB PO PRN ×3 (01:23→23:38)
--- NOTE | 2020-06-22 01:30 | NUR ---
Pt. feels discomfort with the presence of F/C in his urethra. Pt. wants to take out or removed the F/C as he requested.
--- NOTE | 2020-06-22 01:45 | NUR ---
ISRAEL Casey helped assigned ISRAEL Baca to discontinue the F/C, remove the 10 mls. of sterile H20 from the port, suddenly, there was fresh red blood coming out from the F/C and about [address] JEANA Reaves.
--- NOTE | 2020-06-22 02:15 | NUR ---
JEANA Reaves finally returned call and gave instructions to remove F/C and monitor pt. throughout the shift. Suggested CT of the Abdomen and Pelvis to the [facility], JEANA Reaves instructed ISRAEL Baca that there's no need for this test, just to monitor pt. throughout the shift.
--- NOTE | 2020-06-22 02:30 | NUR ---
Removed or discontinued the F/C and washed and cleansed the pt. Clean the pt.s' bed and changed all bed linens and washed and cleansed pt. too. Then changed pt.'s gown. Pt. is dry and clean, advised pt. to return to the bed and rest. Pt. still with little bleeding coming from the irritated urethra possible by trauma due to the F/C insertion. Pt. keep monitored and observed.
--- NOTE | 2020-06-22 04:00 | NUR ---
Pt. asleep and resting. No s/s of active bleeding coming form the urethral meatus @ this time.
[2020-06-22 04:57] VITALS: BP 142/73
--- NOTE | 2020-06-22 05:30 | NUR ---
Pt. able to void @ the urinal with pink tinged yellow urine about 250 mls. and pt. showed it to ISRAEL Baca. Pt. was able to void now @ last. Pt is happy to have voided @ the urinal.
[2020-06-22] MEDS: MORPHINE SULF INJ 2 MG/ML SYRINGE 1ML IV PRN ×2 (06:11→12:45)
[2020-06-22 06:32] LABS: Basophils # (auto) 0 10 ^3/uL (0-0.2); Eosinophils # (auto) 0.1 10 ^3/uL (0-0.8); Eosinophils % (auto) 0.7 % (0.0-7.0); Lymphocytes # (auto) 1.6 10 ^3/uL (0.4-5.4); White Blood Cell 7.8 10^3/uL (4.4-10.8)
[2020-06-22 06:35] LABS: Basophils % (auto) 0.3 % (0.0-2.0); Hematocrit 41.1 % (41.0-53.0); Hemoglobin 13.8 g/dL (13.5-17.5); Lymphocytes % (auto) 21.1 % (10.0-50.0); Mean Corpuscular Hemoglobin 25.1 pg (28.0-32.0); Mean Corpuscular Hgb Conc. 33.6 g/dL (32.0-36.0); Mean Corpuscular Volume 74.8 fL (80.0-100.0); Monocytes # (auto) 0.9 10 ^3/uL (0-1.3); Monocytes % (auto) 11.3 % (0.0-12.0); Neutrophils # (auto) 5.2 10 ^3/uL (1.6-8.6); Neutrophils % (auto) 66.6 % (37.0-80.0); Nucleated Red Blood Cells % 0.1 %; Platelet Count (auto) 258 10^3/uL (140-450); Red Cell Distribution Width 14.1 % (11.8-14.3)
[2020-06-22 06:48] LABS: Potassium 3.7 mmol/L (3.5-5.1)
[2020-06-22 07:01] LABS: Albumin 3.9 g/dL (3.4-5.0); BUN/Creatinine Ratio 3.4; Bilirubin, Total 0.7 mg/dL (0.2-1.0); Calcium 8.5 mg/dL (8.5-10.1); Total Protein 7.2 g/dL (6.4-8.2)
--- NOTE | 2020-06-22 07:30 | NUR ---
Endorsed or gave report to the next shift ISRAEL Willett and made aware. Pt. is resting in bed, awaiting for the breakfast mealtray. No s/s of active bleeding noted from the urethral meatus. Pt. is calm and quiet.
[2020-06-22 08:00] VITALS: BP 117/67
[2020-06-22 09:00] VITALS: BP 117/67
[2020-06-22] MEDS: PANTOPRAZOLE 40 MG/10 ML VIAL INJ IV SCH (09:48)
[2020-06-22] MEDS: SODIUM CHLORIDE 0.9% 1,000 ML IV SCH (11:53)
[2020-06-22 13:00] VITALS: BP 123/77
--- NOTE | 2020-06-22 14:16 | NUR ---
Est energy needs [id number] kcal (25-30 kcal/kg BW 69.3kg) Est protein needs 55-69g (0.8-1g/kg BW 69.3kg) will reassess prn. Addendum: 06/22/20 at [address] Amended: Links added.
[2020-06-22 17:00] VITALS: BP 116/79
[2020-06-22] MEDS ORDERED: diphenhdrAMINE HCL 25 MG CAP PO ONE (18:00)
--- NOTE | 2020-06-22 18:04 | NUR ---
PATIENT COMPLAINING ABOUT SUBSTANTIAL RASH ON LEFT FOREARM. CALLED [facility]. RECEIVED 1 TIME BENADRYL 25 MG PO ORDER FROM DR BRISCOE.
--- NOTE | 2020-06-22 19:30 | NUR ---
Opening Shift Note Assumed care of patient, awake and alert. No S/S of distress/SOB or pain. Surgical incisions clean, dry and intact, abd binder in place. Safety measures in place, bed in lowest position, bed rails raised x2, call light within reach. Instructed on POC and to call for assist PRN, will continue to monitor for changes Q1hr and PRN.
[2020-06-22 21:50] VITALS: BP 115/73
[2020-06-23] MEDS ORDERED: diphenhdrAMINE HCL 25 MG CAP PO ONE (04:45)
[2020-06-23] MEDS: SODIUM CHLORIDE 0.9% 1,000 ML IV SCH ×2 (04:56→14:05)
[2020-06-23 05:00] VITALS: BP 117/52
[2020-06-23 05:49] LABS: Basophils # (auto) 0 10 ^3/uL (0-0.2); Lymphocytes # (auto) 1.9 10 ^3/uL (0.4-5.4); Monocytes # (auto) 0.8 10 ^3/uL (0-1.3); Neutrophils # (auto) 3.1 10 ^3/uL (1.6-8.6); Nucleated Red Blood Cells % 0.1 %
[2020-06-23 05:53] LABS: Basophils % (auto) 0.4 % (0.0-2.0); Eosinophils # (auto) 0.1 10 ^3/uL (0-0.8); Eosinophils % (auto) 2.4 % (0.0-7.0); Hematocrit 39.2 % (41.0-53.0); Lymphocytes % (auto) 32.4 % (10.0-50.0); Mean Corpuscular Hemoglobin 25.1 pg (28.0-32.0); Mean Corpuscular Hgb Conc. 33.2 g/dL (32.0-36.0); Mean Corpuscular Volume 75.7 fL (80.0-100.0); Monocytes % (auto) 13.5 % (0.0-12.0); Neutrophils % (auto) 51.3 % (37.0-80.0); Platelet Count (auto) 216 10^3/uL (140-450); Red Blood Cells 5.17 10^6/uL (4.5-5.90); Red Cell Distribution Width 14.4 % (11.8-14.3)
[2020-06-23 06:11] LABS: BUN/Creatinine Ratio 2.4; Calcium 8.7 mg/dL (8.5-10.1); Potassium 3.6 mmol/L (3.5-5.1)
[2020-06-23 08:00] VITALS: BP 114/61
[2020-06-23 09:00] VITALS: BP 114/61
[2020-06-23] MEDS: PANTOPRAZOLE 40 MG/10 ML VIAL INJ IV SCH (09:11)
[2020-06-23 14:33] VITALS: BP 113/60
[2020-06-23 16:14] VITALS: BP 113/60
[2020-06-23 17:00] VITALS: BP 123/61
--- NOTE | 2020-06-23 17:15 | NUR ---
PATIENT DISCHARGING HOME WITH FAMILY. PATIENT NON-TELEMETRY. ALL IV ACCESS DISCONTINUED. ALL DISCHARGE INSTRUCTIONS GIVEN. ALL DISCHARGE PAPERWORK SIGNED.
== END 2020-06-23 18:15 | disposition home or self-care (01) | DRG 263 ==
LOC: ER 13:02 → OVERFLOW 13:03 → WEST WING 06-20 02:25
PROVIDERS: ADMIT Nurse Practitioner Family; ATTEND Internal Medicine
PROC: 3E013GC Introduction of Other Therapeutic Substance into Subcutaneous Tissue, Percutaneous Approach (ICD-10-PCS; 2020-06-21)
PROC: 0FT44ZZ Resection of Gallbladder, Percutaneous Endoscopic Approach (ICD-10-PCS; principal; 2020-06-21 07:35)
DX: K80.10 Calculus of gallbladder with chronic cholecystitis without obstruction (principal); Z87.19 Personal history of other diseases of the digestive system; Z11.59 Encounter for screening for other viral diseases
CPT/HCPCS: 36415; 76705; 80048; 80053; 81001; 82150; 83690; 85025; 85610; 85730; 86850; 86900; 86901; 87081; C9113; G0378; J0330; J0690; J2250; J2405; J2704